=== PATIENT | male | born 1980 | race Caucasian/White ===

== ENCOUNTER 2021-10-18 17:12 | Emergency (ER) | payer OTHER, SELFPAY ==
--- NOTE | ~2021-10-18 | XR_ITS ---
XR knee LT 3V 10/18/2021 17:44 INDICATION: Left knee pain and swelling. Redness. PROCEDURE: 3 views left knee COMPARISON: No prior studies for comparison. FINDINGS: Fracture, dislocation or subluxation is not identified. The soft tissues appear within norm al limits. No foreign bodies are identified. IMPRESSION: 1: NO ACUTE BONE OR JOINT ABNORMALITY IDENTIFIED. Reviewed, dictated and finalized at location A.
[2021-10-18 17:23] VITALS: BP 152/94; PULSE 87; RESP 16; TEMP 36.4; O2SAT 100
--- NOTE | 2021-10-18 17:25 | ED.LOWEXIN ---
HPI - Extremity Injury (Lower) General Chief Complaint: Extremity Injury, Lower Stated Complaint: left knee swollen Time Seen by Provider: 10/18/21 17:25 Source: patient Mode of arrival: ambulatory Limitations: no limitations History of Present Illness HPI Narrative: 41 y/o male presented for c/o left knee redness, swelling and pain since yesterday at about 1430. Denies injury. Endorses small scab to left knee stating he thought it was an infected hair, this was more 'raised' yesterday per pt. States he briefly kneeled on the floor yesterday and felt a sharp pain at the site of the scab. Denies drainage or pain at this site. Since then the knee became more swollen and painful above the patella. Took ibuprofen for pain yesterday which helped pain, denies significant change in swelling. Rates 4/10. Constant and throbbing. He was able to walk today and completed his work. Denies numbness, tingling, weakness of the lower extremity. Related Data Allergies Allergy/AdvReac Type Severity Reaction Status Date / Time No Known Allergies Allergy Verified 10/18/21 17:23 Review of Systems Review of Systems: CONSTITUTIONAL: Denies body aches, fever, chills CARDIOVASCULAR: Denies chest pain, palpitations, or edema. RESPIRATORY: Denies cough or dyspnea. SKIN: Reports scabbed wound to left knee MUSCULOSKELETAL: Reports knee pain NEUROLOGIC: Denies headache, numbness, tingling, or weakness. All systems reviewed & are unremarkable except as noted in HPI and below PMFSH Comments At time of signature, I have reviewed and agree with nursing past medical, surgical, social and family history unless otherwise noted. Please see nursing chart for further information. There is no relevant family history pertinent to the presenting complaint Exam Narrative: GENERAL: Well-appearing CHEST: Lungs clear. HEART: Regular rate and rhythm. EXTREMITIES: Left knee suprapatellar region with moderate swelling, warmth, and erythema, tender with palpation; c/w suprapatellar bursitis. normal range of motion at the knee. Scabbed area approx 3mm diameter distal to patella, no active drainage or surrounding induration. No obvious deformity; pulse palpable and equal bilaterally, skin warm, dry, pink. Capillary refill less than 3 seconds. Gait steady. SKIN: Warm, dry, no rash. NEURO: Alert and oriented x3. PSYCH: Normal mood and affect Course Course Emergency Course: Patient is aware of diagnosis, understands and agrees to treatment plan. Anticipatory guidance given. Patient agrees to follow-up as directed and is aware of reasons to seek care at the emergency department. Portions of this record may have been created with voice recognition software Level of Care: Express Care Visit Vital Signs Vital signs: Vital Signs Temperature 97.6 F 10/18/21 17:23 Pulse Rate 87 10/18/21 17:23 Respiratory Rate 16 10/18/21 17:23 Blood Pressure 152/94 H 10/18/21 17:23 Pulse Oximetry 100 10/18/21 17:23 Temperature 97.6 F 10/18/21 17:23 Pulse Rate 87 10/18/21 17:23 Respiratory Rate 16 10/18/21 17:23 Blood Pressure 152/94 H 10/18/21 17:23 Pulse Oximetry 100 10/18/21 17:23 Reviewed MDM - Extremity Injury (Lower) MDM Narrative Medical decision making narrative: Xray reviewed with pt. PE c/w bursitis. abx to cover for the small scabbed area given pt's report of it being more swollen yesterday. Advised supportive measures and signs/symptoms to go to the ER. Pt is appropriate for outpt treatment and f/u. Advised to f/u with pcp next week. Differential Diagnosis Differential diagnosis: Likely acute internal derangement of knee and other (gout, septic arthritis, bursitis) Imaging Data Radiologist's impression: Ordering Physician: Shae Lee APRN Date of Service: 10/18/21 Procedure(s): XR knee LT 3V Accession Number(s): [id number] cc: Shae Lee APRN~ XR knee LT 3V 10/18/2021 17:44 INDICATION: Left knee pain and swelli
== END 2021-10-18 18:04 | disposition home or self-care (01) ==
PROVIDERS: Emergency Provider Nurse Practitioner Family
DX: M25.562 Pain in left knee (principal)
CPT/HCPCS: 73562; 99213; G0463

== ENCOUNTER 2024-09-12 10:00 | Outpatient (CLI) | payer OTHER, SELFPAY ==
[2024-09-12 13:27] LABS: Hemoglobin 14.1 g/dL (14.0-18.0); Mean Corpuscular HGB Conc 32.8 g/dl (32-36); Mean Corpuscular Hemoglobin 29.7 pg (26-34); Mean Corpuscular Volume 90.7 fl (80-100); Platelet Count Result 242 k/mm3 (150-375); Red Blood Count 4.74 M/mm3 (4.6-6.20); Red Cell Distribution Width 13.4 % (11.5-14.5); White Blood Count 5.7 K/mm3 (4.5-10.0)
[2024-09-12 13:45] LABS: Alanine Aminotransferase 43 U/L (6-50); Albumin Level 4.1 g/dL (3.5-5.1); Alkaline Phosphatase 52 U/L (38-126); Anion Gap 7 mmol/L (4-12); Aspartate Amino Transferase 43 U/L (17-59); Bilirubin,Total 0.5 mg/dL (0.2-1.3); Blood Urea Nitrogen 16 mg/dL (9-20); Calcium 9.2 mg/dL (8.4-10.2); Carbon Dioxide 26 mmol/L (22-30); Chloride 107 mmol/L (98-107); Cholesterol 203 mg/dL (0-200); Estimated Glomerular Filt Rate > 60; Glucose 99 mg/dL (65-110); HDL Direct 32 mg/dL; Potassium 3.9 mmol/L (3.4-5.0); Sodium 140 mmol/L (137-145); Total Protein 6.8 g/dL (6.3-8.2); Triglycerides 135 mg/dL (<150)
[2024-09-12 13:56] LABS: LDL Cholesterol Direct 132 mg/dL
[2024-09-12 14:44] LABS: Hemoglobin A1C 5.2 % (<5.7)
== END 2024-09-12 10:01 | disposition home or self-care (01) ==
LOC: ANHGOSHLAB 10:01
PROVIDERS: PCP Nurse Practitioner Family; Visit Provider Nurse Practitioner Family
DX: Z13.220 Encounter for screening for lipoid disorders (principal); Z68.38 Body mass index [BMI] 38.0-38.9, adult
CPT/HCPCS: 36415; 80053; 80061; 83036; 85027